=== PATIENT | male | born 1950 | race Caucasian/White ===

== ENCOUNTER 2017-11-02 08:37 | Day surgery (SDC) | payer BC, OTHER ==
[~2017-11-02 08:37] MED LIST: EPINEPHRINE INJ 1 MG/10 ML DISP.SYRIN ONE; FENTANYL CITRATE INJ/PF 100 MCG/2 ML AMPUL ONE; FLUMAZENIL INJ 0.5 MG/5 ML VIAL ONE; GLUCAGON,HUMAN RECOMB 1 MG INJ ONE; MIDAZOLAM 2 MG/2 ML INJ ONE; NALOXONE HCL INJ/PF 0.4 MG/1 ML SDV ONE; ONDANSETRON HCL INJ/PF 4 MG/2 ML SDV ONE
[2017-11-02] MEDS: MIDAZOLAM 2 MG/2 ML INJ ONE ×4 (08:56→09:14)
--- NOTE | 2017-11-02 09:44 | Discharge Summary ---
Discharge Summary (SDC) - Discharge Final Diagnosis: 1. Diverticulosis right and left colonic 2. Colonic polyps 3. Internal/external hemorrhoids. Date of Surgery: 11/02/17 Discharge Date: 11/02/17 Condition: Good Treatment or Instructions: [address] [address] POST ENDOSCOPY DISCHARGE INSTRUCTIONS 1. Diet: Start clear liquids that a regular diet as tolerated. 2. Resume all preoperative medications. All oral anticoagulants and aspirins can be resumed 24 hours after procedure. 3. If a polypectomy was performed some bleeding per rectum may occur. This should stop within 3 days. If not, please contact the office. 4. If you had a colonoscopy you may experience some bloating and delayed return of normal bowel function for several days, your regular bowel movement pattern should resume within a week. 5. Please contact [facility] at to make an appointment with Dr. Oneil for 1 to 3 weeks following procedure. 6. If you have any questions or concerns regarding your care,treatment plan or follow up, please contact our office. 7. Per clinical guidelines we recommend you undergo a repeat colonoscopy in 3 years. Referrals: EVE SOTELO DO [Primary Care Provider] - Discharge Diet: As Tolerated Discharge Activity: Activity As Tolerated Home Care Assistance: None Needed Report the Following to Your Physician Immediately: Shortness of Breath, Increase in Pain, Fever over 101 Degrees
--- NOTE | 2017-11-02 09:48 | Operative Report ---
Operative Report DATE OF SURGERY: 11/02/17 PREOPERATIVE DIAGNOSIS: 1. Personal history of colon polyps. 2. History of diverticulosis POSTOPERATIVE DIAGNOSIS: Same with. 1. descending colon and rectosigmoid colon polyps. 2. Internal/external hemorrhoids OPERATION: 1. Total colonoscopy to cecum. 2. Cold forceps polypectomy of left colon polyp. 3. Cold forceps polypectomy of sigmoid colon polyp SURGEON: KULWANT ORDAZ ANESTHESIA: Moderate Sedation TISSUE REMOVED OR ALTERED: Colon polyps 2 COMPLICATIONS: None ESTIMATED BLOOD LOSS: Negligible INTRAOPERATIVE FINDINGS: See below PROCEDURE: Obtaining informed consent the patient was taken from the preoperative holding area to the main endoscopy suite where monitoring devices were attached to the patient. Plan and surgical timeout were conducted The patient was placed in the left lateral decubitus position with knees to chest. A perianal examination was performed. Sphincter tone was appropriate; there were internal and external hemorrhoids nonthrombosed. The flexible adult colonoscope was advanced through the anal rectal canal, all the way to the cecum. Visualization of the cecum was achieved and the ileocecal valve, the appendiceal orifice and transillumination of the anterior abdominal wall. This was an excellent study on the well-prepped bowel. There was only residual amount of green flaky material. The colonoscope was withdrawn slowly and methodically checked and the mucosa carefully. There was no evidence of tumor, stricture, bleeding; there were extensive diverticulosis of the sigmoid colon as well as the right colon including the cecum. In the left colon there was a small sessile polyp photographed and removed with the cold forceps device specimen labeled left colon polyp; in the rectosigmoid colon approximately 25 cm from the anal verge was a small cell polyp which was also removed with the cold forceps device and labeled as such. Bleeding was negligible. The scope was slowly withdrawn through the anal rectal canal. Complete visualization of the rectum was achieved with photodocumentation. The scope was withdrawn to the patient's anus. The patient tolerated the procedure well and was taken to the recovery area in stable condition. Surveillance guidelines, patient be appropriate candidate for follow-up colonoscopy in 3 years, or sooner if any symptoms develop.
[2017-11-02 11:00] VITALS: BP 128/74
== END 2017-11-02 10:40 | disposition home or self-care (01) ==
LOC: END 08:37
PROVIDERS: ATTEND Surgery
PROC: 0DBN8ZX Excision of Sigmoid Colon, Via Natural or Artificial Opening Endoscopic, Diagnostic (ICD-10-PCS; 2017-11-02)
PROC: 0DBG8ZX Excision of Left Large Intestine, Via Natural or Artificial Opening Endoscopic, Diagnostic (ICD-10-PCS; principal; 2017-11-02 09:00)
DX: Z12.11 Encounter for screening for malignant neoplasm of colon (principal); K57.30 Diverticulosis of large intestine without perforation or abscess without bleeding; K63.5 Polyp of colon; Z86.010 Personal history of colon polyps; C44.90 Unspecified malignant neoplasm of skin, unspecified; F17.210 Nicotine dependence, cigarettes, uncomplicated; Z98.52 Vasectomy status
CPT/HCPCS: 45380; 88305 ×2; J2250; J3010; J0171; J1610; J2310; J2405; J3490